=== PATIENT | female | born 1965 | race Caucasian/White ===

== ENCOUNTER 2017-03-31 08:55 | Day surgery (SDC) | payer BC ==
[~2017-03-31] VITALS: Ht 170.2 cm; Wt 64.8 kg
[2017-03-31 09:32] VITALS: Ht 170.2 cm; Wt 64.8 kg
[2017-03-31] MEDS ORDERED: ZOC10 PO (09:38)
[2017-03-31 10:05] VITALS: BP 138/74; PULSE 61; RESP 18
--- NOTE | 2017-03-31 10:54 | OPPN ---
Date/Time of Note Date/Time of Note DATE: 03/31/17 TIME: 10:52 Operative Report Preoperative Diagnosis Abdominal pain Screening colonoscopy Postoperative Diagnosis Gastroesophageal reflux disease Gastritis with erosions Internal hemorrhoids Operation/Procedure Performed Esophagogastroduodenoscopy and biopsy Colonoscopy Provider: SRINI VASQUEZ MD Anesthesia Type: moderate sedation Estimated blood loss: none Transfusion Required: no Specimens Gastric mucosal biopsy Grafts/Implants: none Complications: no SRINI VASQUEZ MD Mar 31, 2017 10:54
[2017-03-31] MEDS ORDERED: FENTAnyl 50 MCG/ML VIAL ONE (11:01)
[2017-03-31] MEDS ORDERED: MIDAZOLAM 1 MG/ML 2 ML INJ ONE ×2 (11:01→11:02)
[2017-03-31 11:12] VITALS: BP 99/54; PULSE 54; RESP 14
--- NOTE | 2017-03-31 13:12 | GILP ---
DATE OF PROCEDURE: 03/31/2017 PREOPERATIVE DIAGNOSES: 1. Abdominal pain. 2. Screening colonoscopy. POSTOPERATIVE DIAGNOSES: 1. Gastroesophageal reflux disease. 2. Gastritis with erosions. 3. Gastric mucosal biopsies were taken for Helicobacter pylori test. 4. Colonoscopy all the way to the cecum. 5. Internal hemorrhoids. 6. No colon neoplasm was identified. PROCEDURES PERFORMED: 1. Esophagogastroduodenoscopy and biopsy. 2. Colonoscopy. SURGEON: Brandon Alicea MD. INDICATION FOR PROCEDURE: Ms. Pepe Bolivar is a 51-year- old female patient who had upper abdominal pain not responding to therapy. She also needed a screening colonoscopy. The procedures and possible complications were well explained to the patient. She understood and consented to the procedures. DESCRIPTION OF PROCEDURE: Under the influence of fentanyl and Versed the gastroscope was carefully introduced into the esophagus and under direct vision it was advanced to the stomach, into the pylorus, into the duodenal bulb and descending duodenum. Findings esophagus, the patient had gastroesophageal reflux disease. Stomach, she had gastritis with erosions. Gastric mucosal biopsies were taken for Helicobacter pylori test. Duodenum was normal. The colonoscope was carefully introduced in the rectum and under direct vision it was advanced all the way to the cecum. Findings, the patient had internal hemorrhoids. No colon neoplasm was identified. She tolerated the procedures very well and there was no complication from the procedures. At the end of procedures she was awake with stable vital signs and she was discharged home in the care of her family. IMPRESSION: Please see postoperative diagnoses. PLAN: 1. Await histopathology report. 2. Nexium 24 hours p.o. q.a.m. 3. Next screening colonoscopy in 10 years. Dictated By: MD TITUS Mccarty/jose/pinky /Document#: [id number] CC: Brandon Alicea MD;*[facility]*
== END 2017-03-31 11:11 | disposition home or self-care (01) ==
LOC: GIL 08:55
PROVIDERS: ATTEND Internal Medicine Gastroenterology
DX: Z12.11 Encounter for screening for malignant neoplasm of colon (principal); K21.9 Gastro-esophageal reflux disease without esophagitis; K29.60 Other gastritis without bleeding; K64.8 Other hemorrhoids
CPT/HCPCS: 43239; 45378; 87081; J2250; J3010; Z7610

== ENCOUNTER → 2018-04-18 | Outpatient (CLI) | END | disposition home or self-care (01) ==

== ENCOUNTER → 2018-06-02 | Outpatient (CLI) | END | disposition home or self-care (01) ==